=== PATIENT | female | born 1975 | race Caucasian/White ===

== ENCOUNTER 2016-05-15 07:56 | Emergency (ER) | payer OTHER ==
[~2016-05-15] VITALS: Ht 162.6 cm; Wt 77.0 kg
[~2016-05-15 07:56] MED LIST: AMBI10TA PO; AMIT1TAB79; BACT2OIN TOPICAL; CEPH-460 PO; NAPR1TAB34 PO
[2016-05-15 08:01] VITALS: BP 154/103; PULSE 111; RESP 14; TEMP 98.8; O2SAT 98
[2016-05-15] MEDS ORDERED: KETOROLAC TROMETHAMINE 30 MG/ML (IVP) VIAL IV PUSH ONE (08:15)
[2016-05-15] MEDS ORDERED: ONDANSETRON HCL 4 MG/2 ML VIAL IV PUSH ONE (08:15)
[2016-05-15] MEDS ORDERED: TOPA100T11 PO (08:19)
--- NOTE | 2016-05-15 08:19 | PD ---
HPI Chief Complaint: Headache Time Seen by Provider: 08:06 Travel History International Travel<30 days: No Contact w/Intl Traveler<30days: No Traveled to known affect area: No History of Present Illness HPI 41-year-old female complains of headache. Patient has history of complex migraine headache. Patient has been seen by neurologist Dr. Atkins, for migraine headache. Patient is on Topamax and amitriptyline daily. Patient states that she started having headache 2 days ago. Patient states that headaches aching headache throbbing headache with sharp stabbing headache on the left side the head. Patient complains of photophobia and visual disturbance with the headache. Patient complains of numbness of tingling sensation of the whole body and extremity. Patient denies any recent head injury. Patient denies any fever chills. Patient denies any neck pain. Patient denies any chest pain or shortness of breath. Patient denies abdominal pain. Patient has nausea but no vomiting or diarrhea. PFSH Past Medical History Depression: Yes Diminished Hearing: No Immunizations Current: Yes Migraines: Yes ?: Not : 4 Para: 2 : 2 Past Surgical History Cholecystectomy: Yes Genitourinary Surgery: Yes (URETHRAL CYST) Gynecologic Surgery: Yes (IUD PLACEMENT) Tonsillectomy: Yes Social History Alcohol Use: Yes ("occasionally") Tobacco Use: Yes (1PPD) Substance Use: No Allergies-Medications (Allergen,Severity, Reaction): Coded Allergies: No Known Allergies (Verified , 05/15/16) Reported Meds & Prescriptions Reported Meds & Active Scripts Active Zofran Odt (Ondansetron Odt) 4 Mg Tab 4 Mg SL Q6HR PRN Fioricet (Eeebjxpvhx-Vncyluxveqozs-Buwfnpmd) 50-300-40 Mg Cap 1-2 Cap PO Q6H PRN Ambien (Zolpidem Tartrate) 10 Mg Tab 10 Mg PO HS PRN limit 5x weekly. may refill monthly Reported Topamax (Topiramate) 100 Mg Tab 100 Mg PO BID Elavil (Amitriptyline HCl) 25 Mg Tab 50 HS Review of Systems General / Constitutional: No: Fever Eyes: Positive: Photophobia, No: Visual changes HENT: Positive: Headaches Cardiovascular: No: Chest Pain or Discomfort Respiratory: No: Shortness of Breath Gastrointestinal: Positive: Nausea, No: Abdominal Pain Genitourinary: No: Dysuria Musculoskeletal: No: Pain Skin: No Rash Neurologic: No: Weakness Psychiatric: No: Depression Endocrine: No: Polydipsia Hematologic/Lymphatic: No: Easy Bruising Physical Exam Narrative GENERAL: Well-nourished, well-developed patient. SKIN: Focused skin assessment warm/dry. HEAD: Normocephalic. EYES: No scleral icterus. No injection or drainage. Pupils 3 mm equal reactive. NECK: Supple, trachea midline. No JVD or lymphadenopathy. CARDIOVASCULAR: Regular rate and rhythm without murmurs, gallops, or rubs. RESPIRATORY: Breath sounds equal bilaterally. No accessory muscle use. GASTROINTESTINAL: Abdomen soft, non-tender, nondistended. MUSCULOSKELETAL: No cyanosis, or edema. BACK: Nontender without obvious deformity. No CVA tenderness. Neurologic exam: Patient's awake and alert oriented 3. No obvious focal neurological deficit. Data Data Last Documented VS Vital Signs Date Time Temp Pulse Resp B/P Pulse Ox O2 Delivery O2 Flow Rate FiO2 05/15/16 08:01 98.8 111 14 154/103 98 Orders Ketorolac Inj (Toradol Inj) (05/15/16 08:15) Ondansetron Inj (Zofran Inj) (05/15/16 08:15) MDM Medical Decision Making Medical Screen Exam Complete: Yes Emergency Medical Condition: Yes Differential Diagnosis Differential diagnosis including migraine headache, tension headache, cluster headache, encephalitis. Narrative Course 41-year-old female with complex migraine headache. History of migraine headache. Toradol 30 mg IV. Zofran 4 mg IV. Diagnosis Primary Impression: Migraine with visual aura Patient Instructions: General Instructions Additional Instructions: Take medications as needed. Follow-up with personal physician and neurologist. Return if worse. Med/Other Pt SpecificInfo: Prescription(s) given Scripts Tramadol (Ultram)50 Mg Tab50 Mg PO Q6H PRN (HEADACHE) #20 TAB Prov:Pedro Coulter MD 05/15/16 Ondansetron Odt (Zofran Odt)4 Mg Tab4 Mg SL Q6HR PRN (Nausea/Vomiting) #12 TAB Ref 0 Prov:Pedro Coulter MD 05/15/16 Wrnusefnjy-Ijdygaoasxgbi-Fzxtiidl (Fioricet)50-300-40 Mg Cap1-2 Cap PO Q6H PRN ( HEADACHE) #30 CAP Ref 0 Prov:Pedro Coulter MD 05/15/16 Disposition: 01 DISCHARGE HOME Condition: Stable Pedro Coulter MD May 15, 2016 08:19
[2016-05-15] MEDS ORDERED: BUTA1CAP PO (08:51)
[2016-05-15] MEDS ORDERED: ZOFR4TAB3 SL (08:51)
[2016-05-15] MEDS ORDERED: ULTR50TA5 PO (09:01)
[2016-06-04] MEDS ORDERED: AMBI10TA PO (11:44)
== END 2016-05-15 09:20 | disposition home or self-care (01) ==
LOC: PHED 07:56
DX: G43.109 Migraine with aura, not intractable, without status migrainosus (principal); F32.9 Major depressive disorder, single episode, unspecified; F17.200 Nicotine dependence, unspecified, uncomplicated
CPT/HCPCS: 96374; 96375; 99283; J1885; J2405

== ENCOUNTER 2016-06-11 05:56 | Emergency (ER) | payer OTHER ==
[~2016-06-11] VITALS: Ht 162.6 cm; Wt 76.8 kg
[~2016-06-11 05:56] MED LIST changes: -BACT2OIN TOPICAL; +BUTA1CAP PO; -CEPH-460 PO; -NAPR1TAB34 PO; +TOPA100T11 PO; +ULTR50TA5 PO; +ZOFR4TAB3 SL
[2016-06-11 06:04] VITALS: BP 129/86; PULSE 96; RESP 20; TEMP 99.1; O2SAT 99
[2016-06-11] MEDS ORDERED: KETOROLAC TROMETHAMINE 30 MG/ML (IVP) VIAL IVP ONE (07:00)
[2016-06-11] MEDS ORDERED: ONDANSETRON HCL 4 MG/2 ML VIAL IVP ONE (07:00)
[2016-06-11] MEDS ORDERED: SODIUM CHLORIDE 0.9% FLUSH 10 ML FLUSH IVF PRN (07:00)
--- NOTE | 2016-06-11 07:04 | PD ---
HPI Chief Complaint: Headache Time Seen by Provider: 06:47 Travel History International Travel<30 days: No Contact w/Intl Traveler<30days: No Traveled to known affect area: No History of Present Illness HPI The patient is a 41-year-old female that has a history of migraine headaches who complains of a severe migraine headache on her left parietal area for 2 days. She is followed by Dr. Atkins for migraine headache and they're trying multiple medications. Currently she is on amitriptyline and Topamax. The headache is throbbing, sharp and associated with photophobia and visual disturbance. She denies any fever, chills, neck stiffness, shortness of breath or chest pain. She has nausea without vomiting. At this time she does not want anything that might make her sleepy because she has to drive home. She is trying to call her mother saw her mother can come urine drive her home. PFSH Past Medical History Depression: Yes Diminished Hearing: No Immunizations Current: Yes Migraines: Yes ?: Not LMP: 05/26/16 : 4 Para: 2 : 2 Past Surgical History Cholecystectomy: Yes Genitourinary Surgery: Yes (URETHRAL CYST) Gynecologic Surgery: Yes (IUD PLACEMENT) Tonsillectomy: Yes Social History Alcohol Use: Yes ("occasionally") Tobacco Use: Yes (1PPD) Substance Use: No Allergies-Medications (Allergen,Severity, Reaction): Coded Allergies: No Known Allergies (Verified , 06/11/16) Reported Meds & Prescriptions Reported Meds & Active Scripts Active Ambien (Zolpidem Tartrate) 10 Mg Tab 10 Mg PO HS PRN limit 5x weekly. may refill monthly Ultram (Tramadol HCl) 50 Mg Tab 50 Mg PO Q6H PRN Fioricet (Xmhvukajrr-Qvdblocsvmgze-Xmnmhcsz) 50-300-40 Mg Cap 1-2 Cap PO Q6H PRN Reported Topamax (Topiramate) 100 Mg Tab 100 Mg PO BID Elavil (Amitriptyline HCl) 25 Mg Tab 50 HS Review of Systems Except as stated in HPI: all other systems reviewed are Neg Physical Exam Narrative GENERAL: The patient is alert, oriented 3 in moderate to severe distress with her migraine headache. Her vital signs show blood pressure 129/86 with heart rate of 96 and temperature 99.1 and respirations 20 and oximetry 99%. SKIN: Focused skin assessment warm/dry. HEAD: Atraumatic. Normocephalic. EYES: Pupils equal and round. No scleral icterus. No injection or drainage. ENT: No nasal bleeding or discharge. Mucous membranes pink and moist. NECK: Trachea midline. No JVD. There is no meningismus and the patient flexes neck fully without any hesitation. CARDIOVASCULAR: Regular rate and rhythm. No murmur appreciated. RESPIRATORY: No accessory muscle use. Clear to auscultation. Breath sounds equal bilaterally. GASTROINTESTINAL: Abdomen soft, non-tender, nondistended. Hepatic and splenic margins not palpable. No guarding or rebound is present. MUSCULOSKELETAL: No obvious deformities. No clubbing. No cyanosis. No edema. NEUROLOGICAL: Awake and alert. No obvious cranial nerve deficits. Motor grossly within normal limits. Normal speech. PSYCHIATRIC: Appropriate mood and affect; insight and judgment normal. Data Data Last Documented VS Vital Signs Date Time Temp Pulse Resp B/P Pulse Ox O2 Delivery O2 Flow Rate FiO2 06/11/16 06:18 Room Air 06/11/16 06:04 99.1 96 20 129/86 99 MDM Medical Decision Making Medical Screen Exam Complete: Yes Emergency Medical Condition: Yes Medical Record Reviewed: Yes Differential Diagnosis Migraine headache, tension headache, tension/migraine, tension headache, normal pressure hydrocephalushighly unlikely, subarachnoid hemorrhagehighly unlikely Narrative Course It is now 0700 and the patient is transferred to Dr. Rosales. Bertram Manriquez MD Jun 11, 2016 07:04
[2016-06-11 07:06] VITALS: O2SAT 96
--- NOTE | 2016-06-11 08:23 | PD ---
Data Data Last Documented VS Vital Signs Date Time Temp Pulse Resp B/P Pulse Ox O2 Delivery O2 Flow Rate FiO2 06/11/16 07:06 96 Room Air 06/11/16 06:04 99.1 96 20 129/86 Orders Ecg Monitoring (06/11/16 06:53) Iv Access Insert/Monitor (06/11/16 06:53) Oximetry (06/11/16 06:53) Sodium Chloride 0.9% Flush (Ns Flush) (06/11/16 07:00) Ketorolac Inj (Toradol Inj) (06/11/16 07:00) Ondansetron Inj (Zofran Inj) (06/11/16 07:00) Morphine Inj (Morphine Inj) (06/11/16 08:30) Prochlorperazine Inj (Compazine Inj) (06/11/16 08:30) MDM Supervised Visit with JACY: No Narrative Course This case is checked out to me by Dr. Manriquez at 7 AM. When I went into evaluate the patient she immediately loaded on me. She says she is being treated like a drug seeker and she is upset. However, she came here without a ride so she did not get anything sedating. She has chronic frequent migraines followed by a neurologist. She says that now she does have a ride that is in the waiting room. I gave her injection of morphine and Compazine. Dr. Manriquez did not feel like she needed any imaging or specific testing. She says she just wants to go home. I advised her to follow-up with her neurologist. 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
[2016-06-11] MEDS ORDERED: MORPHINE SULFATE 4 MG/ML INJ IV PUSH ONE (08:30)
[2016-06-11] MEDS ORDERED: PROCHLORPERAZINE INJ 10 MG/2 ML VIAL IV PUSH ONE (08:30)
[2016-06-11] MEDS ORDERED: BUTA1CAP PO (08:53)
[2016-06-11] MEDS ORDERED: ULTR50TA5 PO (08:53)
== END 2016-06-11 08:58 | disposition home or self-care (01) ==
LOC: PHED 05:56
DX: G43.909 Migraine, unspecified, not intractable, without status migrainosus (principal); F17.210 Nicotine dependence, cigarettes, uncomplicated
CPT/HCPCS: 96374; 96375; 99283; J1885; J2405

== ENCOUNTER 2016-11-18 18:49 | Emergency (ER) | payer OTHER ==
[~2016-11-18] VITALS: Ht 162.6 cm; Wt 75.0 kg
[~2016-11-18 18:49] MED LIST changes: -AMIT1TAB79; +BUPR150XL PO; -ZOFR4TAB3 SL
[2016-11-18 18:52] VITALS: BP 141/84; PULSE 105; RESP 16; TEMP 99.3; O2SAT 100
[2016-11-18] MEDS ORDERED: KETOROLAC TROMETHAMINE 30 MG/ML (IVP) VIAL IVP ONE (20:00)
[2016-11-18] MEDS ORDERED: diphenhydrAMINE HCL 50 MG/ML VIAL IVP ONE (20:00)
[2016-11-18] MEDS ORDERED: PROCHLORPERAZINE INJ 10 MG/2 ML VIAL IVP ONE (20:00)
[2016-11-18] MEDS ORDERED: SODIUM CHLORIDE 0.9% FLUSH 10 ML FLUSH IVF PRN (20:00)
--- NOTE | 2016-11-18 20:16 | PD ---
HPI Chief Complaint: Headache Time Seen by Provider: 19:40 Travel History International Travel<30 days: No Contact w/Intl Traveler<30days: No Traveled to known affect area: No History of Present Illness HPI The patient is a 41-year-old female that complains of her typical migraine headache for 5 days. The headache is typical in character except that it is getting worse and not better. She is followed up by Dr. Atkins for her headaches and they're trying various medications to see if this can prevent these headaches. She states the headache is throbbing, sharp and a feeling like it is stabbing at her brain. She denies any nausea or vomiting. She states her pain intensity is a 7/10. She does have photophobia and phonophobia. She denies any fever or chills. She does have her typical visual symptoms this time like she gets with all of her headaches. The last time she was here she refused morphine because she does not want to get morphine or other narcotics unless absolutely necessary. She states she does not like coming here and her last visit was in May of this year. [facility] Past Medical History Depression: Yes Diminished Hearing: No Immunizations Current: Yes Migraines: Yes ?: Not LMP: 2 WEEKS AGO : 4 Para: 2 : 2 Past Surgical History Cholecystectomy: Yes Genitourinary Surgery: Yes (URETHRAL CYST) Gynecologic Surgery: Yes (IUD PLACEMENT) Tonsillectomy: Yes Social History Alcohol Use: Yes ("occasionally") Tobacco Use: Yes (1PPD) Substance Use: No Allergies-Medications (Allergen,Severity, Reaction): Coded Allergies: No Known Allergies (Verified , 11/18/16) Reported Meds & Prescriptions Reported Meds & Active Scripts Active Ambien (Zolpidem Tartrate) 10 Mg Tab 10 Mg PO HS PRN Wellbutrin Xl 24 HR (Bupropion HCl) 150 Mg Tab 150 Mg PO DAILY Ultram (Tramadol HCl) 50 Mg Tab 50 Mg PO Q6H PRN Fioricet (Fbrreiociu-Zvxobaireltvo-Dxsdzzvw) 50-300-40 Mg Cap 1-2 Cap PO Q6H PRN Reported Topamax (Topiramate) 100 Mg Tab 100 Mg PO BID Review of Systems Except as stated in HPI: all other systems reviewed are Neg Physical Exam Narrative GENERAL: The patient is alert, oriented 3 in moderate to severe distress with her migraine headache. The room is dark and she does not want the lights turned on. Her vital signs show blood pressure of 141/84 and heart rate of 105 but are otherwise normal. SKIN: Focused skin assessment warm/dry. HEAD: Atraumatic. Normocephalic. EYES: Pupils equal and round. No scleral icterus. No injection or drainage. ENT: No nasal bleeding or discharge. Mucous membranes pink and moist. NECK: Trachea midline. No JVD. There is no meningismus and patient flexes neck fully without any hesitation. CARDIOVASCULAR: Regular rate and rhythm. No murmur appreciated. RESPIRATORY: No accessory muscle use. Clear to auscultation. Breath sounds equal bilaterally. GASTROINTESTINAL: Abdomen soft, non-tender, nondistended. Hepatic and splenic margins not palpable. MUSCULOSKELETAL: No obvious deformities. No clubbing. No cyanosis. No edema. NEUROLOGICAL: Awake and alert. No obvious cranial nerve deficits. Motor grossly within normal limits. Normal speech. PSYCHIATRIC: The patient is anxious and even slightly angry; insight and judgment normal. Data Data Last Documented VS Vital Signs Date Time Temp Pulse Resp B/P (MAP) Pulse Ox O2 Delivery O2 Flow Rate FiO2 11/18/16 18:52 99.3 105 16 141/84 (103) 100 Orders Orders Ecg Monitoring (11/18/16 19:49) Iv Access Insert/Monitor (11/18/16 19:49) Oximetry (11/18/16 19:49) Sodium Chloride 0.9% Flush (Ns Flush) (11/18/16 20:00) Ketorolac Inj (Toradol Inj) (11/18/16 20:00) Prochlorperazine Inj (Compazine Inj) (11/18/16 20:00) Diphenhydramine Inj (Benadryl Inj) (11/18/16 20:00) MDM Medical Decision Making Medical Screen Exam Complete: Yes Emergency Medical Condition: Yes Medical Record Reviewed: Yes Differential Diagnosis Migraine headache, tension headache, tension/migraine combination headache, normal pressure hydrocephalus, intracranial bleed-highly unlikely Narrative Course The patient has a migraine headache. It is now 8:43 PM and the patient already feels much better and wants to go home. She did not require any narcotics today on this visit but I will refill her tramadol and give her a prescription for Fioricet. Diagnosis Primary Impression: Migraine headache Med/Other Pt SpecificInfo: Prescription(s) given Scripts Fqvdkzdkig-Qvijyardlcjcz-Cmtlzjvj (Fioricet) 50-300-40 Mg Cap 1-2 CAP PO Q6H Y for HEADACHE, #30 CAP 0 Refills Prov: Bertram Manriquez MD 11/18/16 Tramadol (Tramadol) 50 Mg Tab 50 MG PO Q4H Y for PAIN, #20 TAB 0 Refills Prov: Bertram Manriquez MD 11/18/16 Disposition: 01 DISCHARGE HOME Condition: Stable Bertram Manriquez MD Nov 18, 2016 20:15
[2016-11-18 20:40] VITALS: BP 130/80; PULSE 64; RESP 14
[2016-11-18] MEDS ORDERED: TRAM50TA PO (20:45)
[2016-11-18] MEDS ORDERED: BUTA1CAP PO (20:45)
== END 2016-11-18 20:59 | disposition home or self-care (01) ==
LOC: PHED 18:49
DX: G43.909 Migraine, unspecified, not intractable, without status migrainosus (principal)
CPT/HCPCS: 96374; 96375; 99284; J0780; J1200; J1885

== ENCOUNTER 2017-02-18 12:57 | Emergency (ER) | payer SELFPAY ==
[~2017-02-18] VITALS: Ht 162.6 cm; Wt 76.7 kg
[~2017-02-18 12:57] MED LIST changes: -TOPA100T11 PO; +TOPI100 PO; +TRAM50 PO; +TRAM50TA PO; -ULTR50TA5 PO
[2017-02-18 12:59] VITALS: BP 132/79; PULSE 96; RESP 16; TEMP 98.3; O2SAT 99
[2017-02-18] MEDS ORDERED: ONDANSETRON HCL 4 MG/2 ML VIAL IM ONE (13:30)
[2017-02-18] MEDS ORDERED: ZOFR4TAB PO (13:48)
--- NOTE | 2017-02-18 13:52 | PD ---
HPI Chief Complaint: Abdominal Pain Time Seen by Provider: 13:17 Travel History International Travel<30 days: No Contact w/Intl Traveler<30days: No Traveled to known affect area: No History of Present Illness HPI The patient was seen and examined in the presence of the nurse. This patient complains of nausea and vomiting and diarrhea. She had a fever but that has resolved. Symptoms severity is mild to moderate at this point. She complains of some nausea. No alleviating factors. PFSH Past Medical History Hx Anticoagulant Therapy: No Depression: Yes Diminished Hearing: No Immunizations Current: Yes Migraines: Yes Tetanus Vaccination: < 5 Years Influenza Vaccination: Yes ?: Not LMP: 02/14/17 : 4 Para: 2 : 2 Ovarian Cysts: Yes Past Surgical History Cholecystectomy: Yes Genitourinary Surgery: Yes (URETHRAL CYST) Gynecologic Surgery: Yes (IUD PLACEMENT) Tonsillectomy: Yes Social History Alcohol Use: Yes ( occas. wine and or beer) Tobacco Use: Yes (1PPD) Substance Use: No Allergies-Medications (Allergen,Severity, Reaction): Coded Allergies: No Known Allergies (Verified , 11/18/16) Reported Meds & Prescriptions Reported Meds & Active Scripts Active Zofran (Ondansetron HCl) 4 Mg Tab 4 Mg PO Q6HR PRN Ambien (Zolpidem Tartrate) 10 Mg Tab 10 Mg PO HS PRN Fioricet (Mshtetdajr-Bqhtzfwpinvdd-Aplbnqhl) 50-300-40 Mg Cap 1-2 Cap PO Q6H PRN Reported Topamax (Topiramate) 100 Mg Tab 100 Mg PO BID Review of Systems General / Constitutional: No: Fever HENT: No: Headaches Cardiovascular: No: Chest Pain or Discomfort Gastrointestinal: Positive: Nausea, Vomiting, Diarrhea Physical Exam Narrative GENERAL: Well-nourished, well-developed patient in no apparent distress. SKIN: Focused skin assessment reveals no rash and nodules. Skin is Warm and dry. HEAD: Atraumatic. Normocephalic. EYES: Pupils equal and round. No scleral icterus. No injection or drainage. ENT: No nasal bleeding or discharge. Mucous membranes pink and moist. NECK: Trachea midline. No JVD. CARDIOVASCULAR: Regular rate and rhythm. No murmur appreciated. RESPIRATORY: No accessory muscle use. Clear to auscultation. Breath sounds equal bilaterally. GASTROINTESTINAL: Abdomen soft, non-tender, nondistended. Hepatic and splenic margins not palpable. MUSCULOSKELETAL: No obvious deformities. No clubbing. No cyanosis. No edema. NEUROLOGICAL: Awake and alert. No obvious cranial nerve deficits. Motor grossly within normal limits. Normal speech. PSYCHIATRIC: Appropriate mood and affect; insight and judgment normal. Data Data Last Documented VS Vital Signs Date Time Temp Pulse Resp B/P (MAP) Pulse Ox O2 Delivery O2 Flow Rate FiO2 02/18/17 13:24 16 02/18/17 12:59 98.3 96 132/79 (96) 99 Orders Orders Ondansetron Inj (Zofran Inj) (02/18/17 13:30) [facility] Medical Decision Making Medical Screen Exam Complete: Yes Emergency Medical Condition: Yes Medical Record Reviewed: Yes Differential Diagnosis Gastritis, food poisoning, colitis Narrative Course I have reviewed the patient's electronic medical record. Patient looks well-hydrated. Her exam and vitals are normal I gave her injection of Zofran and prescription for same I have recommended clear liquids for 24 hours, then gradually advance as tolerated. Diagnosis Primary Impression: Nausea vomiting and diarrhea Additional Instructions: The patient was advised to follow up with their physician and return if they worsen. I have recommended clear liquids for 24 hours, then gradually advance as tolerated. Med/Other Pt SpecificInfo: Prescription(s) given Scripts Ondansetron (Zofran) 4 Mg Tab 4 MG PO Q6HR Y for NAUSEA OR VOMITING, #14 TAB 0 Refills Prov: Rahul Rosales MD 02/18/17 Disposition: 01 DISCHARGE HOME Condition: Stable Rahul Rosales MD Feb 18, 2017 13:52
[2017-02-18 14:11] VITALS: BP 128/76
== END 2017-02-18 14:25 | disposition home or self-care (01) ==
LOC: PHED 12:57
DX: R11.2 Nausea with vomiting, unspecified (principal); R19.7 Diarrhea, unspecified; F32.9 Major depressive disorder, single episode, unspecified; F17.200 Nicotine dependence, unspecified, uncomplicated; Z79.899 Other long term (current) drug therapy
CPT/HCPCS: 96372; 99284; J2405